=== PATIENT | male | born 1970 | race Caucasian/White ===

== ENCOUNTER 2024-03-04 12:59 | Emergency (ER) | payer SELFPAY ==
[2024-03-04 13:07] VITALS: BP 126/93; PULSE 83; RESP 18; TEMP 37.5; O2SAT 98
--- NOTE | 2024-03-04 14:20 | ED_ITS ---
HPI - URI/Sore Throat General Chief Complaint: Upper Respiratory Infection Stated Complaint: body aches, chills, fatigue Time Seen by Provider: 03/04/24 13:27 History of Present Illness HPI Narrative: 53-year-old male presents emergency department for cough, congestion, body aches, chills since this morning. Patient states his roommate is sick with similar symptoms. Denies known fever. Denies abdominal pain, N/V/D. Related Data Allergies Allergy/AdvReac Type Severity Reaction Status Date / Time No Known Allergies Allergy Verified 03/04/24 12:59 Review of Systems Review of Systems: All systems reviewed & are unremarkable except as noted in HPI and below Exam Narrative: GENERAL: Well-appearing, well-nourished, and in no acute distress. HEAD: Normocephalic, atraumatic. EYES: PERRLA and EOMI. ENT: Nares clear, no rhinorrhea or epistaxis. Mucous membranes moist. Bilateral TMs are kimbrough nonbulging with normal canals. Posterior pharynx without erythema or edema, uvular deviation, no tonsillar hypertrophy NECK: Supple. CHEST: Clear to auscultation. No respiratory distress. HEART: Regular rate and rhythm. No murmur heard. Normal peripheral pulses. ABDOMEN: Soft, nontender, nondistended, normal active bowel sounds. EXTREMITIES: Normal range of motion. No edema. SKIN: Warm, dry, no rash. NEURO: No focal deficits. Alert and oriented x3 Course Vital Signs Vital signs: Vital Signs Temperature 99.5 F 03/04/24 13:07 Pulse Rate 83 03/04/24 13:07 Respiratory Rate 18 03/04/24 13:07 Blood Pressure 126/93 H 03/04/24 13:07 Pulse Oximetry 98 03/04/24 13:07 Oxygen Delivery Room Air 03/04/24 13:07 Temperature 99.5 F 03/04/24 13:07 Pulse Rate 83 03/04/24 13:07 Respiratory Rate 18 03/04/24 13:07 Blood Pressure 126/93 H 03/04/24 13:07 Pulse Oximetry 98 03/04/24 13:07 Oxygen Delivery Room Air 03/04/24 13:07 MDM - URI/Sore Throat MDM Narrative Medical decision making narrative: 53-year-old male presents to the emergency department for URI symptoms since this morning. Patient's roomate is sick with similar symptoms. Vitals are stable. Exam significant for the above. Lung sounds are clear. Patient did test positive for influenza A. He is updated on results. Discussed supportive care including increased fluid intake, Tylenol/ibuprofen, rest, close follow-up with PCP. Return precautions discussed. He is agreeable with the plan ve rbalized understanding. Discharged in stable condition. Lab Data Labs: Lab Results 03/04/24 Range/Units 13:32 Influenza A (RT-PCR) Positive A (Negative) Influenza B (RT-PCR) Negative (Negative) RSV (RT-PCR) Negative (Negative) SARS-CoV-2 RNA (RT-PCR) Negative (Negative) Discharge Plan Discharge Clinical Impression: Influenza A Patient Disposition: Home, Self-Care Condition: Stable Instructions: Antibiotic Form, Influenza (ED) Additional Instructions: You tested positive for influenza A. Please rest, drink plenty of fluids including water, Gatorade and Pedialyte, take Tylenol and ibuprofen as needed for pain as directed on the bottle [id number]. Follow up with primary. Return to the emergency department if you are unable to tolerate food or fluids, or other concerning symptoms. Patient Language: Panamanian Follow-up/Referrals: Eamon Salazar MD [Physician] - UNKNOWN,DOCTOR [Primary Care Provider] - Stand Alone Forms: Work/School Release IP
[2024-03-04 14:27] LABS: Influenza A QL RT-PCR Positive (Negative); Influenza B QL RT-PCR Negative (Negative); RSV RNA, RT-PCR Negative (Negative); SARS-CoV-2 RNA PCR Negative (Negative)
== END 2024-03-04 14:57 | disposition home or self-care (01) ==
PROVIDERS: Emergency Provider Physician Assistant
DX: J10.1 Influenza due to other identified influenza virus with other respiratory manifestations (principal); Z20.822 Contact with and (suspected) exposure to COVID-19
CPT/HCPCS: 87637; 99283